=== PATIENT | female | born 1980 | race Caucasian/White ===

== ENCOUNTER 2017-03-21 09:30 | Day surgery (SDC) | payer OTHER ==
[~2017-03-21] VITALS: Ht 165.1 cm; Wt 82.6 kg
[~2017-03-21 09:30] MED LIST: COLACE100 MG PO; ENDOCET 5-3251 EACH PO; EXCEDRIN MIGRA1 EAC3 PO; HUMULIN N100 UNIT/2 SC; IBUPROFEN800 MG PO; IRON325 M1 PO; LEXAPRO10 MG PO; MOTRIN600 MG PO; NOVOLOG 10100 UNITS/ SC; PRENATAL TABLE1 EAC3 PO
[2017-03-21 09:59] VITALS: BP 127/79
[2017-03-21] MEDS ORDERED: PERCOCET 5/31 TABLET PO (12:17)
[2017-03-21 13:40] VITALS: BP 119/71
[2017-03-21 14:35] VITALS: BP 118/75
== END 2017-03-21 14:55 | disposition home or self-care (01) ==
LOC: SDC 09:30
PROC: 0U574ZZ Destruction of Bilateral Fallopian Tubes, Percutaneous Endoscopic Approach (ICD-10-PCS; principal; 2017-03-21)
DX: Z30.2 Encounter for sterilization (principal); Z80.3 Family history of malignant neoplasm of breast
CPT/HCPCS: J0330; J1100; J1170; J1885; J2250; J2405; J2710; J3010; Q0175; S0020